=== PATIENT | male | born 1960 | race Caucasian/White ===

== ENCOUNTER 2017-12-17 10:46 | Emergency (ER) | payer OTHER ==
[~2017-12-17] VITALS: Ht 177.8 cm; Wt 68.0 kg
[~2017-12-17 10:46] MED LIST: ACTICIN 5% CREA60 G1 TOP; FLOMAX PO; MOMETASONE FURO45 GM TP; MOMETASONE FURO60 ML TP; NOHOMEMEDICATIONS; PERCOCET 5-3251 EACH PO; PREDNISONE 20 M20 M1 PO; PREDNISONE50 MG PO; VISTARIL 25 MG25 M1 PO
[2017-12-17 11:32] LABS: INFLUENZA A ANTIGEN None Detected (None Detect); INFLUENZA B ANTIGEN None Detected (None Detect)
[2017-12-17 11:58] LABS: ABSOLUTE LYMPHOCYTES 0.8 thou/uL (0.8-5.3); ABSOLUTE MONOCYTES 0.8 thou/uL (0.0-1.2); ABSOLUTE NEUTROPHILS 5.9 thou/uL (1.6-8.1); BASOPHILS 0.4 %; EOSINOPHILS 0.1 %; HEMATOCRIT 46.4 % (42.0-52.0); HEMOGLOBIN 16.1 gm/dL (14.0-18.0); MCH 30.7 pg (26.0-34.0); MCHC 34.6 g/dL (28.0-37.0); MCV 88.6 fL (80.0-100.0); MONOCYTES 10.1 %; NUCLEATED RBCS 0 /100WBC; PLATELET COUNT* 91 thou/uL (150-400); POLYS 78.4 %; RBC 5.24 mil/uL (4.50-6.00); RDW-CV 13.2 % (10.5-14.5); WBC 7.5 thou/uL (4.0-11.0)
[2017-12-17 12:09] LABS: CALCIUM 8.2 mg/dL (8.5-10.1); POTASSIUM 4.3 mmol/L (3.5-5.1)
[2017-12-17 12:13] LABS: ALBUMIN 3.4 g/dL (3.4-5.0); TOTAL BILIRUBIN 0.3 mg/dL (<0.1-1.0); TOTAL PROTEIN 7.3 g/dL (6.4-8.2)
[2017-12-17 13:25] LABS: URINE BILIRUBIN NEGATIVE (Negative); URINE BLOOD TRACE (Negative); URINE CLARITY CLEAR; URINE COLOR YELLOW; URINE GLUCOSE-RANDOM NEGATIVE (Negative); URINE KETONES NEGATIVE (Negative); URINE LEUKOCYTES-REFLEX NEGATIVE (Negative); URINE NITRITE-REFLEX NEGATIVE (Negative); URINE PROTEIN NEGATIVE (Negative); URINE SPECIFIC GRAVITY <= 1.005 (1.005-1.030); URINE UROBILINOGEN 0.2 E.U./dl (0.2-1.0)
[2017-12-17] MEDS ORDERED: HYDROCODON-ACE1 EAC7 PO (13:40)
[2017-12-17 14:18] VITALS: BP 119/71
== END 2017-12-17 14:19 | disposition home or self-care (01) ==
LOC: M.ERS 10:46
PROVIDERS: Emergency Medicine; Nurse Practitioner Family
DX: B34.9 Viral infection, unspecified (principal); R10.32 Left lower quadrant pain; F17.210 Nicotine dependence, cigarettes, uncomplicated